=== PATIENT | female | born 1965 | race Caucasian/White ===

== ENCOUNTER 2017-02-16 08:33 | Inpatient (IN) | payer MEDICAID ==
[~2017-02-16] VITALS: Ht 165.1 cm; Wt 133.8 kg
--- NOTE | ~2017-02-16 | CON ---
[place], [place] REPORT OF CONSULTATION [id number] UN[facility] #: [id number] ROOM: 504 DOCTOR: DIANELYS OLIVIER MDHO BIRTHDATE: [birth year] DOS: 02/17/2017 PULMONARY CONSULTATION, EVALUATION AND MANAGEMENT CONSULTATION REQUESTED BY: Hospitalist services, Dr. Frederic Stephenson. REASON FOR CONSULTATION: To assess the patient for current abnormal respiratory symptoms and findings on the CT scan of the chest. HISTORY OF PRESENT ILLNESS: This is a 51-year-old white female who has been admitted to the hospital under care of Dr. Stephenson. The patient noted with acute illness of respiratory symptoms, which started a couple of days ago. She started with symptoms of palpitations of the hospital with increased shortness of breath. The shortness of breath has been noted worsening. She was also noted symptoms of wheezing as well as chest tightness and cough. Symptoms worsened progressively. The patient has been seen in the Emergency Room because of the current progressive respiratory symptom. She has not been getting any regular medications as well as the patient was noted out of the medication since her primary care physician left. She has not been seen by another physician. The patient has been currently admitted to the hospital. She has a CT of the chest done which was described with findings of lymphadenopathy as well as pulmonary nodules. She stated that since she has been hospitalized, she has been feeling reduction and improvement in respiratory symptoms, especially after taking the breathing treatments. She does complain of tightness in the chest, but there was no chest pain described. REVIEW OF SYSTEMS: CONSTITUTIONAL: Fatigue and tiredness noted without symptoms of fever or chills. EYES: Denies any burning, redness, or tenderness. EARS, NOSE, THROAT SYMPTOMS: No sore throat, hoarseness, otalgia, postnasal drainage and sinus congestion has been noted previously seemed to be better. CARDIOVASCULAR: Noted intermittent edema of the lower extremities as well. The patient was noted and palpitation, but there was no angina pain or syncopal episodes. GASTROINTESTINAL: Denies dysphagia, nausea, vomiting, diarrhea, abdominal pain, hematemesis, or melena. GENITOURINARY: No frequent urination. The patient noted without any burning, dysuria, flank pain, or hematuria. SKIN: Denies lesions or rashes. MUSCULOSKELETAL: Complaining of pain, which has been described chronic in the left shoulder seemed to be increased at this time. The patient was noted just with the movements. CENTRAL NERVOUS SYSTEM: Denies dizziness, headache, diplopia, syncopal episodes or seizures. Remaining systems were reviewed with the patient, they were noted all negative. PAST MEDICAL HISTORY: 1. Noted generalized anxiety disorder. [place], [place] REPORT OF CONSULTATION NAME: JAYDA BARNETT UNIT #: [id number] ROOM: [facility] DOCTOR: DIANELYS OLIVIER MD,HO BIRTHDATE: [birth year] 2. History of PTSD. 3. Paroxysmal atrial fibrillation. 4. Severe morbid obesity. 5. History of osteoarthritis. PAST SURGICAL HISTORY: 1. Ectopic tubal . 2. Arthroscopy of the right knee. SOCIAL HISTORY: The patient is currently . She has 2 children. Denies history of alcohol use or illicit drug use noted as life-time nonsmoker. FAMILY HISTORY: The patient's father at 70 years old, complication related to metastatic pancreatic cancer. The mother is living, 82 years old with history of Alzheimer disease also noted with history of hypertension and heart problems. HOME MEDICATIONS: 1. Supposed to be taken by the use of Toprol-XL 25 mg p.o. b.i.d. 2. Zoloft 100 mg p.o. daily. DRUG ALLERGIES: No known drug allergies. PHYSICAL EXAMINATION: GENERAL: A 51-year-old female who has been currently noted awake and alert at this time without any acute distress. VITAL SIGNS: The patient's height was recorded by the nursing staff at the time of admission, height of 5 feet 5 inches, weight of 295 pounds, BMI of 49. The patient shows a normal temperature, respiratory rate 20-35, heart rate 123-94,blood pressure 138/81-101/77. Pulse oxygen saturation recorded as saturation of 96% saturation on room air. HEENT: Chronic obesity. Head was atraumatic. Eyes nonicterus. NECK: Supple. Severe reduced posterior pharyngeal space secondary to the high tongue base crowding of soft tissue structures. CARDIOVASCULAR SYSTEM: S1, S2 audible. LUNGS: The patient was noted without any crackles. Expiratory wheezing was present in the lungs bilaterally. ABDOMEN: Soft, obese, nontender. Bowel sounds present. EXTREMITIES: Shows chronic obesity with mild ankle edema. CENTRAL NERVOUS SYSTEM: Cranial nerves 2-12 intact. No focal deficits. MUSCULOSKELETAL: The patient does not show any acute deformities. SKIN: Showed no lesions or rashes. LABORATORY DATA: Lactic acid 1.2 on admission yesterday. CBC yesterday on admission was noted essentially normal except eosinophils were elevated at 6.7%. CMP of 98 was noted with normal BUN and creatinine. Pro-BNP minimally elevated at 388. PT/PTT yesterday was noted as normal. The urine culture for the patient that was done yesterday showed no bacterial growth. CBC this morning, hemoglobin 11.8, hematocrit 36.0, platelet count was normal, 95% segmented neutrophils was noted. PT/INR and PTT this morning normal. CMP this morning, [place], [place] REPORT OF CONSULTATION NAME: JAYDA BARNETT UNIT #: [id number] ROOM: [facility] DOCTOR: DIANELYS OLIVIER MD,[facility] BIRTHDATE: [birth year] glucose 165. Potassium 3.4, normal BUN and creatinine. Troponin yesterday and this morning were all noted all normal. Chest x-ray, 1 view, the patient that was done in the Emergency Room does not show any acute abnormalities. CTA of the chest the patient that was done yesterday in the Emergency Room, the patient was personally reviewed shows 1.7 x 1.2 cm hypodense nodule in the right lobe of the thyroid. Another nodule, the patient 1.2 x 1.2 cm in the left lobe of the thyroid was also noted. There was enlargement of the lymph nodes in the mediastinum. Hilar area was noted with short dimension lymph node enlargement 1.4 cm in the size. The patient was noted with small 3 nodule, 5 mm or less. The patient noted pleural base on the right upper and the right lobe area. In addition, nodule noted pericardiac area that might be in the right middle lobe as 1 x 0.7 cm in size. A nodular density was described in the right breast as well in the deep subcutaneous tissue and possibly enlarged lymph nodes, but described with nonspecific finding. IMPRESSION: 1. The patient who has been currently admitted to the hospital any acute tracheobronchitis. The patient may have viral in origin with new onset of bronchial asthma exacerbation. 2. Current lymphadenopathy, mediastinal and pulmonary nodule. The location the patient suggestive possibly interpreting, lymph nodes with enlargement of lymph node. The patient with a differential diagnoses of sarcoidosis and chronic hypersensitivity pneumonitis is a possibility. Known mycobacterium tuberculosis infection would be also considered in the differential diagnosis. 3. Subcutaneous nodule in the breath at this time significant unknown to me. Further investigated. The patient was noted with finding of bilateral thyroid nodules. The patient may require further assessment as well. 4. Chronic morbid obesity with possible suggestion of obstructive sleep apnea disorder with current body habitus. The BMI were noted as 49. PLAN OF MANAGEMENT: The patient is getting bronchodilator, which will be continued. The Solu-Medrol will be continued on current dose. The patient reduction of the Solu-Medrol from tomorrow, had improvement in symptoms. Continue current antibiotic. Respiratory viral panel. The patient will be ordered. The workup for the current pulmonary nodule, the patient will be ordered in the lab test. Additional treatment changes will be done based on progression of illness. Obtain mammogram. The patient is an outpatient and also consider getting an ultrasound of the patient to further cracked at the nodular of the thyroid gland. Usual care, other supportive therapy, plan of management. In addition, treatment changes will be done based on the progression of the illness. Usual care, other plan of management and care. Thanks for allowing me to participate in the care of this patient. [place], [place] REPORT OF CONSULTATION NAME: JAYDA BARNETT UNIT #: [id number] ROOM: [facility] DOCTOR: HO GUTIERRES MD BIRTHDATE: [birth year] HO IVORY MD CM:CONSTR:REPORT OF CONSULTATION 1320 02/18/17 2310 interface
--- NOTE | ~2017-02-16 | PR ---
[place], [place] PROGRESS NOTE NAME: JAYDA BARNETT UNIT #: [id number] ROOM: 504 DOCTOR: PORFIRIO DAWKINS MD BIRTHDATE: [birth year] DOS: 02/18/2017 SUBJECTIVE: She is still having cough and expectorating but she is feeling somewhat better. No chest pain, no nausea, no vomiting, no fever or chills. The patient has started ambulating little better. Her urine culture and sensitivity did not grow any bacteria and her sed rate is 59, which is high. C-reactive protein is normal. PHYSICAL EXAMINATION: VITAL SIGNS: Her blood pressure is 128/80, pulse is 80, respirations 20, temperature 98.2. CHEST: Having occasional rhonchi. No crepitation. HEART: Regular. ABDOMEN: Soft. No edema of leg. The patient is progressing gradually. She is encouraged to be more active and walk around. PORFIRIO DAWKINS MD CM:PNTRANS [id number] PORFIRIO DAWKINS MD 02/19/17 0451 interface
--- NOTE | ~2017-02-16 | PR ---
[place], [place] PROGRESS NOTE NAME: JAYDA BARNETT UNIT #: [id number] ROOM: 504 DOCTOR: HO GUTIERRES MD BIRTHDATE: [birth year] DOS: 02/18/2017 PULMONARY FOLLOWUP SUBJECTIVE: She has been noted comfortable at this time without any acute distress. The patient has actions of the shoulder done yesterday, which shows osteoarthritis, left humeral joint. The patient denies symptoms of coughing or any sputum expectoration. The symptoms of shortness of breath, cough and wheezing all resolving progressively. Blood culture, no bacterial growth from 02/16/2017. OBJECTIVE: VITAL SIGNS: Normal temperature, respiratory rate 20, heart rate 80, blood pressure 116/52. The pulse oxygen saturation on room air was 98% saturation. HEENT: Chronic obesity. NECK: Supple. It was obese. CARDIOVASCULAR SYSTEM: S1, S2 audible. LUNGS: Noted without any crackles. Occasional wheezing. ABDOMEN: Soft, nontender. LABORATORY DATA: Blood culture showed no bacterial growth. ESR was noted at 59. CRP minimally elevated at 1.07. Urine culture showed no bacterial growth from admission. Blood culture from the 8th of this month showed no bacterial growths. IMPRESSION: 1. Pulmonary nodule for this patient, which was noted small at least 3 on the right side with evidence of lymphadenopathy, possibly sarcoidosis, chronic hypersensitivity, pneumonitis has been considered as one of the etiologies. 2. Resolving bronchial asthma exacerbation and acute tracheobronchitis. 3. Morbid obesity. Consider obstructive sleep apnea disorder as well. PLAN OF MANAGEMENT: No changes from the pulmonary standpoint, accept consideration for possible home discharge on oral medication whenever desired. Outpatient followup to be established post-discharge. Other supportive therapy, plan of care and management. Monitor results of the lab testing or the patient's pulmonary nodules assessment once available. [place], [place] PROGRESS NOTE NAME: JAYDA BARNETT UNIT #: [id number] ROOM: 504 DOCTOR: HO GUTIERRES MD BIRTHDATE: [birth year] HO IVORY MD CM:PNTRANS [id number] HO OLIVIER MD 02/19/17 0814 interface
--- NOTE | ~2017-02-16 | PR ---
[place], [place] PROGRESS NOTE NAME[facility]: [id number] UNIT #: [id number] ROOM: 504 DOCTOR: PORFIRIO DAWKINS MD BIRTHDATE: [birth year] DOS: SUBJECTIVE: The patient has been admitted to hospital with pneumonitis and sepsis and atrial fibrillation and swelling of the legs. She is feeling somewhat better. The patient has past history of cardiomegaly, depression, morbid obesity, osteoarthritis, paroxysmal atrial fibrillation, post stress syndrome and she is complaining of some cough and had some difficulty in sleeping due to that, but there is no chest pain and she denied any difficulty breathing, swelling of her leg is getting better and the patient will be given Robitussin-DM 1 teaspoon 4 times daily. Her CTA of the chest was showing no pulmonary embolism or aortic aneurysm or dissection. Multiple prominent mediastinal and bilateral ____ lymph nodes were noted. Hypodense node is seen in the right and left lobe of the thyroid. Ovoid soft tissue wound seen within the subcutaneous tissue in the right breast. The patient is being seen by Dr. Steen. OBJECTIVE: VITAL SIGNS: Her blood pressure 110/57, pulse is 97, respirations 20, temperature 98. CHEST: Having occasional wheezes. No crepitation. HEART: Regular. ABDOMEN: Soft, edema of leg is 2+. PORFIRIO DAWKINS MD CM:PNTRANS [id number] PORFIRIO DAWKINS MD 02/17/17 2343 interface
--- NOTE | ~2017-02-16 | PR ---
[place], [place] PROGRESS NOTE NAME: JAYDA BARNETT UNIT #: [id number] ROOM: 504 DOCTOR: DIANELYS OLIVIER MD,HO BIRTHDATE: [birth year] DOS: 02/19/2017 SUBJECTIVE: The patient was seen and examined on 02/19/2017. She has been noted comfortable at this time without any distress. The patient denies any symptoms of acute chest pain. OBJECTIVE: VITAL SIGNS: Normal temperature, respiratory rate 20, heart rate 70, and blood pressure 127/70. Pulse oxygen saturation on room air was 95% saturation. HEENT: Showed no acute change. NECK: Supple. CARDIOVASCULAR: S1, S2 audible. LUNGS: The patient was noted without any wheezing or crackles. ABDOMEN: Soft, nontender. IMPRESSION: 1. The patient with pulmonary nodules with lymphadenopathy and other acute respiratory symptom, resolving progressively. 2. Chronic obesity. 3. Suspicion of obstructive sleep apnea disorder. PLAN OF TREATMENT: The patient could be discharged home today if desired. Outpatient followup to be established in my office. Other supportive plan and management care and treatments. HO IVORY MD CM:PNTRANS [phone] HO OLIVIER MD 02/20/17 0258 interface
--- NOTE | ~2017-02-16 | ECHO ---
[place], [place] ADULT ECHOCARDIOGRAPHY REPORT NAME JAYDA BARNETT UNIT #: [id number] ROOM: 504 DOCTOR: DIANELYS OLIVIER MD,HO BIRTHDATE: [birth year] DOS: 02/16/2017 EKG was done on 02/16/2017 at the hours of 9:00 a.m. 4 minutes. There were noted normal sinus rhythm with a rate of 91 beats per minute. No other acute abnormalities were noted. HO IVORY MD CM:ECHO:ADULT ECHOCARDIOGRAPHY REPORT [phone] HO OLIVIER MD
[2017-02-16 08:34] VITALS: BP 184/90
[2017-02-16 09:13] LABS: BILIRUBIN NEGATIVE (NEGATIVE); BLOOD TRACE-LYSED (NEGATIVE); CLARITY SL CLOUDY (CLEAR); COLOR YELLOW (YELLOW); GLUCOSE NEGATIVE (NEGATIVE); KETONE NEGATIVE (NEGATIVE); LEUKO ESTERASE NEGATIVE (NEGATIVE); NITRITE NEGATIVE (NEGATIVE); SPECIFIC GRAVITY <= 1.005 (1.005-1.030); UROBILINOGEN 0.2 E.U./dl (0.2-1.0)
[2017-02-16 09:14] LABS: BASO % 0.4 % (0.0-1.0); EOS # 0.5 10*3/uL (0.0-0.4); EOS % 6.7 % (1.0-4.0); HEMOGLOBIN 12.5 g/dl (12.0-16.0); LYMPH # 0.7 10*3/uL (1.3-4.4); LYMPH % 9.2 % (27.0-41.0); MEAN CELL VOLUME 89.4 fl (81.0-99.0); MEAN CORPUSCULAR HGB 29.4 pg (27.0-31.0); MEAN CORPUSCULAR HGB CONC 32.9 g/dl (33.0-37.0); MEAN PLATELET VOLUME 9.9 fl (9.6-12.3); MONO # 0.5 10*3/uL (0.1-1.0); NEUT # 5.9 10*3/uL (2.3-7.9); NEUT % 77.4 % (47.0-73.0); PLATELET COUNT AUTOMATED 291 10*3/uL (130-400); RED BLOOD COUNT 4.25 10*6/uL (4.10-5.10); RED CELL DISTRI WIDTH 13.2 % (0-14.5); WHITE BLOOD COUNT 7.6 10*3/uL (4.8-10.8)
[2017-02-16 09:25] LABS: BACTERIA 2+; EPITHELIAL CELLS 0-2; WBC 0-2 wbc/hpf (0-5)
[2017-02-16 09:27] LABS: ALBUMIN 3.5 gm/dl (3.1-4.5); ALKALINE PHOSPHATASE 167 U/L (45-117); BUN 17 mg/dl (7-24); CHLORIDE 106 mmol/L (98-107); CKMB 0.7 ng/ml (0.5-3.6); CPK 45 U/L (26-192); CREATININE 0.73 mg/dL (0.55-1.02); LIPASE 144 U/L (73-393); MAGNESIUM 2.2 mg/dL (1.5-2.1); POTASSIUM 3.8 mmol/L (3.5-5.1); SGOT/AST 27 IU/L (3-35); SGPT/ALT 48 U/L (12-78); SODIUM 138 mmol/L (136-145); TOTAL PROTEIN 7.6 gm/dL (6.4-8.2); TROPONIN I < 0.015 ng/ml (<0.045)
[2017-02-16 09:32] LABS: ACT PARTIAL THROMBO TIME 24.3 SECONDS (20.8-31.5)
[2017-02-16 11:30] VITALS: BP 101/77
--- NOTE | 2017-02-16 11:30 | NUR ---
A 51, admitted to 5E, under the services of AMMY Aguilar MD with a diagnosis of SEPSIS/PNEUMONITIS. Chief complaint is MULTIPLE COMPLAINTS. Patient arrived via ambulatory from ER. Monitor applied. Initial assessment completed. Vital signs taken and recorded. AMMY GAUILAR MD notified of admission to the unit. Orders received. See assessment for past medical history, medications and allergies. Patient and/or family oriented to unit. visitation policy reviewed. Clothing/patient valuable form completed. CHAN SHEIKH
[2017-02-16 12:00] VITALS: BP 101/77
[2017-02-16] MEDS ORDERED: TOPROL XL25 MG PO (12:10)
[2017-02-16] MEDS ORDERED: ZOLOFT100 MG PO (12:10)
[2017-02-16 12:30] VITALS: BP 142/76
--- NOTE | 2017-02-16 14:26 | NUR ---
CALL PLACED TO FOR CONSULT OFFICE STATES THAT THEY SENT HIM THE MESSAGE
--- NOTE | 2017-02-16 14:26 | NUR ---
CALL PLACED TO , OFFICE STAFF STATES THAT WAS IN A MEETING AND STATES THAT THEY WILL GIVE HIM THE MESSAGE SO THAT HE CAN CALL BACK AFTER HIS MEETIING
--- NOTE | 2017-02-16 14:29 | NUR ---
PT OFF THE FLOOR FOR TESTING AT THIS TIME
--- NOTE | 2017-02-16 15:00 | NUR ---
SPOKE WITH , UPDATED ON PT STATUS AND NOTIFIED OF CONSULT
[2017-02-16 16:00] VITALS: BP 136/81
[2017-02-16 20:00] VITALS: BP 136/49
--- NOTE | 2017-02-16 21:00 | NUR ---
RESTING IN BED WITH NO ACUTE DISTRESS NOTED. RESPIRATIONS EASY. LUNGS DIMINISHED WITH EXP WHEEZES. PULSE OX 95% RA. HARSH NON-PRODUCTIVE COUGH NOTED. CALL LIGHT WITHIN REACH. NO VOICED COMPLAINTS
[2017-02-17] VITALS: BP 110/57
--- NOTE | 2017-02-17 | NUR ---
REMAINS IN BED WATCHING TV. RESPIRATIONS EASY. VSS. CALL LIGHT WITHIN REACH. NO VOICED COMPLAINTS
--- NOTE | 2017-02-17 03:30 | NUR ---
PATIENT HAD RUNS OF BIGEMINY AND TRIGEMINY.
--- NOTE | 2017-02-17 06:00 | NUR ---
RESTED THROUGHOUT NIGHT. RESPIRATIONS EASY. CALL LIGHT WITHIN REACH
--- NOTE | 2017-02-17 07:00 | NUR ---
DR DAWKINS HERE TO SEE PATIENT AND DISCUSS PLAN OF CARE
[2017-02-17 07:13] LABS: HEMOGLOBIN 11.8 g/dl (12.0-16.0); MEAN CELL VOLUME 90.2 fl (81.0-99.0); MEAN CORPUSCULAR HGB 29.6 pg (27.0-31.0); MEAN CORPUSCULAR HGB CONC 32.8 g/dl (33.0-37.0); MEAN PLATELET VOLUME 10.3 fl (9.6-12.3); PLATELET COUNT AUTOMATED 301 10*3/uL (130-400); RED BLOOD COUNT 3.99 10*6/uL (4.10-5.10); RED CELL DISTRI WIDTH 13.2 % (0-14.5); WHITE BLOOD COUNT 9.2 10*3/uL (4.8-10.8)
--- NOTE | 2017-02-17 07:30 | NUR ---
AASSUMED CARE OF PT AT THIS TIME, RESPS EASY AND NONLABORED WITH NO S/S OF DISTRESS, CALL LIGHT WITH IN REACH
[2017-02-17 07:31] LABS: ALBUMIN 3.2 gm/dl (3.1-4.5); CHLORIDE 106 mmol/L (98-107); POTASSIUM 3.4 mmol/L (3.5-5.1); SODIUM 138 mmol/L (136-145); TOTAL PROTEIN 7.5 gm/dL (6.4-8.2)
[2017-02-17 07:37] LABS: TOTAL CELLS COUNTED 100 #CELLS
[2017-02-17 07:38] LABS: ALKALINE PHOSPHATASE 158 U/L (45-117); BUN 15 mg/dl (7-24); CHOLESTEROL 174 mg/dL (<200); CREATININE 0.66 mg/dL (0.55-1.02); HDL CHOLESTEROL 74 mg/dl (40-60); LDL CHOLESTEROL 92 mg/dL (9-159); MAGNESIUM 2.1 mg/dL (1.5-2.1); PHOSPHOROUS 1.9 mg/dL (2.5-4.9); PLATELET SUFFICIENCY NORMAL (NORMAL); SGOT/AST 28 IU/L (3-35); SGPT/ALT 47 U/L (12-78); THYROID STIM HORMONE (HS) 0.461 uIU/ml (0.358-4.75); TRIGLYCERIDES 41 mg/dl (<150); VLDL CHOLESTEROL 8 mg/dL (6-40)
[2017-02-17 07:56] LABS: ACT PARTIAL THROMBO TIME 23.1 SECONDS (20.8-31.5)
[2017-02-17 08:00] VITALS: BP 128/67
[2017-02-17 08:32] LABS: VITAMIN D, 25-HYDROXY 14.1 ng/mL (30-100)
[2017-02-17 12:00] VITALS: BP 128/71
--- NOTE | 2017-02-17 13:59 | NUR ---
CALL PLACED TO PRIMARY MD AT THIS TIME NO ANSWER WILL ATTEMPT TO CALL AGAIN
[2017-02-17 16:00] VITALS: BP 124/70
--- NOTE | 2017-02-17 16:53 | NUR ---
PATIENT RESTING AT PRESENT.
[2017-02-17 20:00] VITALS: BP 118/63
--- NOTE | 2017-02-17 21:00 | NUR ---
RESTING IN BED WITH WATCHING TV WITH NO DISTRESS NOTED. RESPIRATIONS EASY. LUNGS DIMINISHED WITH FAINT EXP WHEEZES. PULSE OX 96% RA. CLAIMS NON-PROD COUGH. GENERALIZED EDEMA VS OBESITY NOTED. CALL LIGHT WITHIN REACH. NO VOICED COMPLAINTS
--- NOTE | 2017-02-17 21:30 | NUR ---
WAS GIVEN TYLENOL AND TUMS PRN FOR ARTHRITIS PAIN AND HEART BURN. WILL CONTINUE TO MONITOR.
--- NOTE | 2017-02-17 22:00 | NUR ---
PT ASSESSED FOR EFFECTIVENESS OF ARTHRITIS PAIN AND HEART BURN. PAIN AND HEART BURN HAS DECREASED STATED BY PT. INTERVENTIONS EFFECTIVE. WILL CONTINUE TO MONITOR.
[2017-02-18] VITALS: BP 128/81
--- NOTE | 2017-02-18 01:30 | NUR ---
PT SLEEPING. WILL CONTINUE TO MONITOR.
--- NOTE | 2017-02-18 03:00 | NUR ---
PATIENT SLEEPING WITH NO DISTRESS NOTED. BANK ANALYST REVEALS FREQUENT PVC'S AND RUNS OF TRIGEMINY. PATIENT AWAKENED, DENIES CHEST PAIN.
--- NOTE | 2017-02-18 06:00 | NUR ---
SLEPT THROUGHOU NIGHT WITH NO DISTRESS NOTED. RESPIRATIONS EASY. CALL LIGHT WITHIN REACH. NO VOICED COMPLAINTS THIS SHIFT
--- NOTE | 2017-02-18 06:45 | NUR ---
PATIENT ORDERED RESP PANEL, NOT YET COLLECTED BY LAB. LAB CONTACTED AND TO LOOK INTO THIS
[2017-02-18 07:06] LABS: RHEUMATOID ARTHRITIS FACTOR 37.2 IU/mL (0.0-13.9)
[2017-02-18 08:00] VITALS: BP 118/57
[2017-02-18 09:05] LABS: IMMUNOGLOBULIN IgE 002170 127 IU/mL (0-100)
[2017-02-18 12:00] VITALS: BP 116/62
[2017-02-18 16:00] VITALS: BP 124/66
[2017-02-18 17:05] LABS: HEPATITIS C AB <0.1 (0.0-0.9)
--- NOTE | 2017-02-18 19:30 | NUR ---
ASSUMED CARE OF PT AT THIS TIME, RESPS EASY AND NONLABORED, CALL LIGHT WITH IN REACH
[2017-02-18 20:00] VITALS: BP 112/58
[2017-02-19] VITALS: BP 121/76
--- NOTE | 2017-02-19 03:58 | NUR ---
PATIENT RESTING IN BED WITH EYES CLOSED. NO SIGNS OR SYMPTOMS OF DISTRESS NOTED. AROUSES TO VERBAL STIMULI. WILL CONTINUE TO MONITOR. CALL LIGHT IN REACH.
--- NOTE | 2017-02-19 05:35 | NUR ---
PATIENT MEDICATED WITH TUMS FOR COMPLAINTS OF HEARTBURN.
[2017-02-19 08:00] VITALS: BP 127/70
--- NOTE | 2017-02-19 08:30 | NUR ---
Transonic Engineer in to talk to patient. Patient states lives at HOME [place] with HER . There are 5 steps in the home. Physician: DR MILIAN Pharmacy: [facility] Home health services: NONE Patient's level of ADLs: INDEPENDENT Patient has working utilities: YES DME: NONE Follow-up physician's appointment after d/c: PREFERS TO MAKE HER OWN APPT Does patient want to access PORTAL?: Discharge plan HOME. GARY MAYEN
[2017-02-19 12:00] VITALS: BP 121/93
[2017-02-19] MEDS ORDERED: ASPIRIN ADULT L81 M2 PO (13:09)
[2017-02-19] MEDS ORDERED: LEVAQUIN500 M2 PO (13:09)
[2017-02-19] MEDS ORDERED: PREDNISONE10 MG PO (13:09)
[2017-02-19] MEDS ORDERED: LISINOPRIL5 MG PO (13:09)
[2017-02-19] MEDS ORDERED: METOPROLOL SUCC25 M2 PO (13:09)
[2017-02-19 15:06] LABS: ATYPICAL PANCA <1:20 titer (Neg:<1:20); CYTOPLASMIC (C-ANCA) <1:20 titer (Neg:<1:20); PERINUCLEAR (P-ANCA) <1:20 titer (Neg:<1:20)
--- NOTE | 2017-02-19 15:43 | NUR ---
Discharge instructions reviewed with patient/family. Patient receptive and verbalizes understanding. Follow-up care arranged. Written instructions given to patient/family. ALVA BOBBY
[2017-02-19 16:08] LABS: ALDOLASE 002030 4.7 U/L (3.3-10.3); ANGIOTENSIN-CONVERTING ENZYME 39 U/L (14-82)
[2017-02-19 18:05] LABS: IGG SUBCLASS 1 737 mg/dL (248-810); IGG SUBCLASS 2 142 mg/dL (130-555); IGG SUBCLASS 3 72 mg/dL (15-102); IGG SUBCLASS 4 27 mg/dL (2-96)
[2017-02-22 00:04] LABS: ADENOVIRUS Negative (Negative); INFLUENZA A Negative (Negative); INFLUENZA B Negative (Negative); METAPNEUMOVIRUS Negative (Negative); PARAINFLUENZA 1 Negative (Negative); PARAINFLUENZA 2 Negative (Negative); PARAINFLUENZA 3 Negative (Negative); RHINOVIRUS Positive (Negative); RSV A Negative (Negative); RSV B Negative (Negative)
== END 2017-02-19 15:43 | disposition home or self-care (01) | DRG 871 ==
LOC: ED 08:33 → EDHOLD 10:09 → 5E 10:09
PROVIDERS: Emergency Medicine; Internal Medicine; Internal Medicine Critical Care Medicine; ADMIT Internal Medicine
DX: A41.9 Sepsis, unspecified organism (principal); J18.9 Pneumonia, unspecified organism; J45.901 Unspecified asthma with (acute) exacerbation; E83.41 Hypermagnesemia; Z68.42 Body mass index [BMI] 45.0-49.9, adult; I48.0 Paroxysmal atrial fibrillation; F32.9 Major depressive disorder, single episode, unspecified; E66.01 Morbid (severe) obesity due to excess calories; F41.9 Anxiety disorder, unspecified; J20.9 Acute bronchitis, unspecified; R59.1 Generalized enlarged lymph nodes; I51.7 Cardiomegaly; R03.0 Elevated blood-pressure reading, without diagnosis of hypertension; F43.10 Post-traumatic stress disorder, unspecified; M15.9 Polyosteoarthritis, unspecified; E04.2 Nontoxic multinodular goiter; Z79.899 Other long term (current) drug therapy; Z72.89 Other problems related to lifestyle; Z81.8 Family history of other mental and behavioral disorders; Z80.8 Family history of malignant neoplasm of other organs or systems; Z82.49 Family history of ischemic heart disease and other diseases of the circulatory system

== ENCOUNTER → 2017-03-05 | Outpatient (CLI) | payer MEDICAID ==
[~2017-03-05] MED LIST: ASPIRIN ADULT L81 M2 PO; LEVAQUIN500 M2 PO; LISINOPRIL5 MG PO; METOPROLOL SUCC25 M2 PO; PREDNISONE10 MG PO; TOPROL XL25 MG PO; ZOLOFT100 MG PO
== END | disposition home or self-care (01) ==
LOC: US 15:00
DX: E04.1 Nontoxic single thyroid nodule (principal); N64.9 Disorder of breast, unspecified

== ENCOUNTER → 2017-03-15 | Outpatient (CLI) | payer MEDICAID | END | disposition home or self-care (01) | LOC: MAMMO 00:47 | DX: Z12.31 Encounter for screening mammogram for malignant neoplasm of breast (principal); E04.1 Nontoxic single thyroid nodule; N64.9 Disorder of breast, unspecified ==

== ENCOUNTER → 2017-04-02 | Outpatient (CLI) | payer OTHER ==
[2017-04-02 11:15] LABS: ACT PARTIAL THROMBO TIME 22.6 SECONDS (20.8-31.5); INTERNATIONAL NORM RATIO 0.9 (2.0-3.5)
== END | disposition home or self-care (01) ==
LOC: RAD 04:01 → LAB 04:01 → SDC 11:00 → EDSTATUS 11:00 → RAD 11:00
PROVIDERS: Internal Medicine
DX: E04.1 Nontoxic single thyroid nodule (principal); R79.1 Abnormal coagulation profile

== ENCOUNTER → 2017-04-19 | Outpatient (CLI) | payer MEDICARE, MEDICAID | END | disposition home or self-care (01) | LOC: LAB 07:05 | DX: R76.8 Other specified abnormal immunological findings in serum (principal); R74.8 Abnormal levels of other serum enzymes; Z79.899 Other long term (current) drug therapy ==

== ENCOUNTER 2017-07-19 07:49 | Inpatient (IN) | payer MEDICARE ==
[2017-07-19] VITALS (7 sets, daily range): BP systolic 129–150; BP diastolic 66–94
[~2017-07-19] VITALS: Ht 165 cm; Wt 135.6 kg
--- NOTE | ~2017-07-19 | O ---
[place], [place] OPERATIVE NOTE NAME: JAYAD BARNETT UNIT #: [id number] ROOM: 404 DOCTOR: JAIRO NICHOLS MD BIRTHDATE: [birth year] DOS: 07/20/2017 PROCEDURE: Transesophageal echocardiogram and cardioversion. INDICATION: Atrial fibrillation. DESCRIPTION OF PROCEDURE: Informed consent was obtained from the patient, she was brought to the operating suite in the fasting state. Anesthesia was provided by Anesthesia staff. When a satisfactory level of anesthesia was obtained, a transesophageal transducer was inserted from her mouth to the diaphragm without difficulty. Images were obtained in the standard fashion. Echocardiographic contrast was obtained with 10 mL bolus of agitated saline. When all imaging was completed, the patient did undergo a direct current synchronized cardioversion. FINDINGS: The aortic root, visualized transverse aorta and descending thoracic aorta to the diaphragm were normal in caliber and free of any significant atherosclerosis. The aortic valve had three leaflets with normal function. The left atrium appeared normal in size. Four pulmonary veins were noted to enter it normally. The left atrial appendage was normal in size. No thrombus was seen. The mitral valve structure and coaptation were normal. Left ventricular internal dimensions and regional wall motion were normal with a normal ejection fraction. The right atrium and right ventricle appeared normal in size. The tricuspid valve was structurally normal. There was physiologic mitral and tricuspid insufficiency. There was no evidence for elevation in right ventricular systolic pressure. The pulmonic valve appeared normal. Echo contrast (agitated saline) was injected via a peripheral vein. The right atrium and right ventricle well opacified. There was no shunting at the atrial level noted. CARDIOVERSION: The patient received a total of 2 biphasic shocks utilizing anterior, posterior pads. Shocks were administered in a synchronized fashion. The first one was at 100 watt seconds and did not result in a cardioversion. The second one was at 200 watt seconds and did result in conversion to sinus rhythm. The patient tolerated the procedure well and had stable vital signs at the end of the procedure. IMPRESSION: 1. No cardiac source of emboli seen. 2. Successful biphasic electrical cardioversion. [place], [place] OPERATIVE NOTE NAME: JAYDA BARNETT UNIT #: [id number] ROOM: 404 DOCTOR: JAIRO NICHOLS MD BIRTHDATE: [birth year] JAIRO NICHOLS MD CM:OPRMATTORD:OPERATIVE NOTE [id number] JAIRO NICHOLS MD 07/20/17 2236 interface
--- NOTE | ~2017-07-19 | PR ---
[place], [place] PROGRESS NOTE NAME: [id number] UNIT #: [id number] ROOM: 404 DOCTOR: PORFIRIO DAWKINS MD BIRTHDATE: [birth year] DOS: 07/21/2017 The patient has been admitted to hospital with atrial fibrillation with ventricular rapid rate with pulmonary nodules which are benign in nature, morbid obesity, post-traumatic stress disorder, tachycardia, tachypnea, osteoarthritis, elevated C-reactive protein, elevated BNP, shortness of breath, depression, anxiety and thyroid nodules. The patient is feeling much better. She does not have any shortness of breath now and there does not seem to be any distress. She will continue taking her medication at home, which is Zoloft 100 mg daily, aspirin 81 mg daily, gabapentin 100 mg 3 times daily, metoprolol 100 mg twice daily, Xarelto 20 mg daily, benzonatate 100 mg 3 times daily, doxycycline 100 mg twice daily, prednisone 10 mg daily. She is advised to lose weight, control diet and she will be followed up by Dr. Stephenson in the office next week. PORFIRIO DAWKINS MD CM:PNTRANS [id number] PORFIRIO DAWKINS MD 07/21/17 2019 interface
--- NOTE | ~2017-07-19 | PR ---
[place], [place] PROGRESS NOTE NAME: JAYDA BARNETT UNIT #: [id number] ROOM: 404 DOCTOR: JAIRO NICHOLS MD BIRTHDATE: [birth year] DOS: 07/20/2017 CARDIOLOGY PROGRESS NOTE SUBJECTIVE: The patient was seen in the Cardiology Department today, 07/20/2017, prior to a stress test. She remains dyspneic and continues to have an irregular heartbeat despite diltiazem and propafenone being administered overnight. Troponin levels have been unremarkable. TSH was normal. PHYSICAL EXAMINATION: VITAL SIGNS: Today her pulse is 100 and irregularly irregular, blood pressure is 122/70. She is afebrile. She weighs 135.6 kilograms with a body mass index of 49.8. HEENT: Normocephalic and atraumatic. NECK: Supple. She has no jugular distention. Carotids are full. LUNGS: Respirations are unlabored. Her chest is clear to auscultation and percussion. HEART: Has an irregularly irregular rhythm without murmurs or gallops. ABDOMEN: Obese, but otherwise benign. EXTREMITIES: Showed trace edema. IMPRESSION: 1. Recurrent paroxysmal atrial fibrillation with rapid ventricular response. 2. Morbid obesity. 3. Possible hypertension. 4. History of posttraumatic stress disorder with anxiety and depression. PLAN: We will proceed with a pharmacologic stress test today. Later today we will do a CHIKI, followed by cardioversion assuming there is no intracardiac thrombus present. We will continue to manage her with propafenone to help prevent future episodes of atrial fibrillation. She will be maintained on oral anticoagulation after the cardioversion. I thank Dr. Stephenson for asking our advice regarding management of this patient. [place], [place] PROGRESS NOTE NAME: JAYDA BARNETT UNIT #: [id number] ROOM: 404 DOCTOR: JAIRO NICHOLS MD BIRTHDATE: [birth year] JAIRO NICHOLS MD CM:PNTRANS [id number] JAIRO NICHOLS MD 07/20/17 1020 interface
--- NOTE | ~2017-07-19 | PR ---
[place], [place] PROGRESS NOTE NAME: JAYDA BARNETT UNIT #: [id number] ROOM: 404 DOCTOR: PORFIRIO DAWKINS MD BIRTHDATE: [birth year] DOS: SUBJECTIVE: The patient has been admitted to hospital with atrial fibrillation with rapid ventricular rate with pulmonary nodules which are benign, morbid obesity, posttraumatic stress syndrome, tachycardia, tachypnea, osteoarthritis and also having acute bronchitis. She is feeling a little better today. She is breathing better. She received her aerosol treatment, which has improved her breathing. She is still having cough. No headache. No chest pain. No nausea or vomiting. Her CT of the abdomen was done yesterday, which shows nonobstructive left nephrolithiasis without hydronephrosis or ureteral stone ____ mildly enlarged lymph node and bilateral ____ lymph nodes along the bilateral ____ change. The patient is having ureteric stone on the left side and her urine examination shows + blood, 4+ bacteria. OBJECTIVE: VITAL SIGNS: Her blood pressure is 142/76, pulse 65, respirations 18, temperature 98.2. The patient is denying any abdominal pain. HEART: Somewhat irregular. LUNGS: Some few wheezing and crepitations. ABDOMEN: Soft. ASSESSMENT AND PLAN: The patient is already taking Rocephin to cover her urinary tract infection. The patient has counseled to lose some weight. PORFIRIO DAWKINS MD CM:PNTRANS [id number] PORFIRIO DAWKINS MD 07/23/17 0240 interface
--- NOTE | ~2017-07-19 | CON ---
[place], [place] REPORT OF CONSULTATION NAME: JAYDA BARNETT UNIT #: [id number] ROOM: 404 DOCTOR: JAIRO NICHOLS MD BIRTHDATE: [birth year] DOS: 07/19/2017 CARDIOLOGY CONSULTATION REASON FOR CONSULTATION: Atrial fibrillation with rapid ventricular response. HISTORY OF PRESENT ILLNESS: The patient is a 51-year-old woman who had an episode of atrial fibrillation while living in [place] in around 2013. She states that she was given medications and her heart converted spontaneously to sinus rhythm. She remained on metoprolol until she moved to the local area and then ran out of her medications. She presented to the hospital in early February 2017 with palpitations and dyspnea. She also noticed increased leg swelling. She was in sinus rhythm at the time of her evaluation and therefore it was difficult to know what her arrhythmias truly were. Since her risk of stroke seemed small, we treated her with aspirin and a beta laurent. Since then she has had frequent palpitations, but has not been documented to have atrial fibrillation until the current admission. She states that in last evening, she was feeling much more short of breath and fatigued and felt like her heart was out of rhythm. She came to the Emergency Room where she was seen to be in atrial fibrillation with rapid ventricular response. She was placed on a heparin drip and admitted. She was placed on oral diltiazem since IV diltiazem is not currently available and we were asked to see her. At the present time, the patient is fairly comfortable. Her heart rate is about 90 to 110. She shows no signs of heart failure. PAST MEDICAL HISTORY: Includes: 1. Morbid obesity. 2. Paroxysmal atrial fibrillation. 3. Posttraumatic stress disorder with anxiety and depression. 4. Hypertension, noted on this admission. 5. History of reactive airways disease. 6. Status post arthroscopy of her right knee and tubal ectopic . MEDICATIONS: Prior to admission included aspirin 81 mg daily, gabapentin 100 mg t.i.d., metoprolol 50 mg b.i.d. and sertraline 100 mg daily. ALLERGIES: She has no known drug allergies. REVIEW OF SYSTEMS: The patient denies diplopia, loss of vision, but she does note that she has episodes where she suddenly cannot remember words or pronounce words properly. These are brief, but she has noticed them on several occasions. She denies focal weakness. She denies nausea or vomiting. She denies fevers, chills, sweats or recent weight change. She denies hemoptysis or hematemesis. She denies diaphoresis, but she does have episodes of fatigue and palpitations. She denies any change in bowel or bladder habits and denies bleeding in her bowels or urine. She denies peripheral edema. She denies heat or cold intolerance. She denies any peripheral edema or clots in her legs. The remainder of the review of systems is negative except as noted above. [place], [place] REPORT OF CONSULTATION NAME: JAYDA BARNETT UNIT #: [id number] ROOM: 404 DOCTOR: JAIRO NICHOLS MD BIRTHDATE: [birth year] SOCIAL HISTORY: The patient does not currently smoke and does not use drugs. She drinks alcohol on occasions. PHYSICAL EXAMINATION: GENERAL: The patient is a morbidly obese white female who is awake, alert and oriented. VITAL SIGNS: Pulse is 90 and irregularly irregular, blood pressure is 129/66. She is afebrile. She weighs 135.6 kilograms with a body mass index of 49.8. HEENT: Normocephalic and atraumatic. Extraocular muscles are intact. Sclerae are clear. Pupils are equal, round and react to light. The oral mucosa is moist. Tongue is midline. NECK: Supple. She has no jugular distention. Carotids are full. I heard no bruits. She had no neck or supraclavicular masses and no thyromegaly. LUNGS: Respirations are unlabored. Her chest is clear to auscultation and percussion. She had no presacral edema or chest wall tenderness. CARDIOVASCULAR: Her heart had an irregularly irregular rhythm without murmurs or gallops. The PMI was not displaced. ABDOMEN: Soft and normoactive without mess, organomegaly or bruits. EXTREMITIES: Showed no edema. Peripheral pulses were palpable in the feet bilaterally. LABORATORY DATA: I reviewed her electrocardiogram, which showed atrial fibrillation with a rapid ventricular response. She had a nonspecific intraventricular conduction delay and nonspecific T-wave abnormalities. Her chest x-ray showed normal heart size without any infiltrates; however, her CT scan did show multiple pulmonary nodules as well as an enlarged mediastinal and right axillary lymph node. Etiology of these is not yet known. White count 6500, hemoglobin is 12.4, hematocrit 38.4, platelet count 306,000. Sodium 139, potassium 3.8, BUN 19, creatinine 0.74. Troponin has been negative x 3. TSH is pending. IMPRESSIONS: 1. Recurrent atrial fibrillation. 2. Morbid obesity. 3. Possible hypertension. 4. History of posttraumatic stress disorder with anxiety and depression. PLAN: The patient's CHADS-VASc score appears to be increasing. She probably does have hypertension, so her score is at least 2. In addition, she seems to be having more episodes of atrial fibrillation. At this point, I think that she should be anticoagulated with either warfarin or one of the direct oral anticoagulants. She probably will require this long-term. I also think that she should be placed on an antiarrhythmic drug to try to prevent some of the episodes of atrial fibrillation. For tonsarwat, we will treat her with oral diltiazem since IV diltiazem is not available and try to slow her rate that way. We will also start her on propafenone to see if she will convert to sinus rhythm. If she converts overnight, we will start her on a direct oral anticoagulant and allow her to go home on propafenone. If she does not convert, [place], [place] REPORT OF CONSULTATION NAME: JAYDA BARNETT UNIT #: [id number] ROOM: [facility] DOCTOR: JAIRO NICHOLS MD BIRTHDATE: [birth year] then we will plan on doing a CHIKI-guided cardioversion within the next 24 hours. Further recommendations depend upon how she responds to therapy. If antiarrhythmic therapies are not helpful, then consideration for electrolyte physiologic evaluation would be given. We will have to explore with the patient whether or not she has sleep apnea syndrome, which also could contribute to her atrial arrhythmias. I thank Dr. Stephenson for asking our advice regarding management of this patient. JAIRO NICHOLS MD CM:CONSTR:REPORT OF CONSULTATION 1724 07/19/17 2007 interface
[2017-07-19] MEDS ORDERED: GABAPENTIN100 M2 PO (08:07)
[2017-07-19 08:12] LABS: BASO % 0.6 % (0.0-1.0); EOS # 0.3 10*3/uL (0.0-0.4); EOS % 5.2 % (1.0-4.0); HEMATOCRIT 39.1 % (37.0-47.0); HEMOGLOBIN 12.7 g/dl (12.0-16.0); LYMPH % 15.9 % (27.0-41.0); MEAN CELL VOLUME 89.3 fl (81.0-99.0); MEAN CORPUSCULAR HGB CONC 32.5 g/dl (33.0-37.0); MEAN PLATELET VOLUME 9.5 fl (9.6-12.3); MONO # 0.4 10*3/uL (0.1-1.0); MONO % 6.7 % (3.0-9.0); NEUT # 4.4 10*3/uL (2.3-7.9); NEUT % 71.3 % (47.0-73.0); PLATELET COUNT AUTOMATED 342 10*3/uL (130-400); RED BLOOD COUNT 4.38 10*6/uL (4.10-5.10); RED CELL DISTRI WIDTH 12.8 % (0-14.5); WHITE BLOOD COUNT 6.2 10*3/uL (4.8-10.8)
[2017-07-19 08:23] LABS: ACT PARTIAL THROMBO TIME 23.7 SECONDS (20.8-31.5)
[2017-07-19 08:29] LABS: ALBUMIN 3.3 gm/dl (3.1-4.5); ALKALINE PHOSPHATASE 160 U/L (45-117); BUN 19 mg/dl (7-24); CHLORIDE 103 mmol/L (98-107); CREATININE 0.74 mg/dL (0.55-1.02); POTASSIUM 3.8 mmol/L (3.5-5.1); SGOT/AST 25 IU/L (3-35); SGPT/ALT 39 U/L (12-78); SODIUM 139 mmol/L (136-145); TOTAL PROTEIN 7.4 gm/dL (6.4-8.2)
[2017-07-19 08:32] LABS: TROPONIN I < 0.015 ng/ml (<0.045)
[2017-07-19] MEDS ORDERED: METOPROLOL SUC100 M1 PO (11:36)
[2017-07-19 13:42] LABS: BASO % 0.3 % (0.0-1.0); EOS # 0.3 10*3/uL (0.0-0.4); EOS % 3.9 % (1.0-4.0); HEMATOCRIT 38.4 % (37.0-47.0); HEMOGLOBIN 12.4 g/dl (12.0-16.0); LYMPH # 0.5 10*3/uL (1.3-4.4); LYMPH % 7.9 % (27.0-41.0); MEAN CELL VOLUME 89.1 fl (81.0-99.0); MEAN CORPUSCULAR HGB 28.8 pg (27.0-31.0); MEAN CORPUSCULAR HGB CONC 32.3 g/dl (33.0-37.0); MEAN PLATELET VOLUME 9.1 fl (9.6-12.3); MONO # 0.3 10*3/uL (0.1-1.0); MONO % 4.2 % (3.0-9.0); NEUT # 5.4 10*3/uL (2.3-7.9); NEUT % 83.4 % (47.0-73.0); PLATELET COUNT AUTOMATED 306 10*3/uL (130-400); RED BLOOD COUNT 4.31 10*6/uL (4.10-5.10); RED CELL DISTRI WIDTH 12.8 % (0-14.5); WHITE BLOOD COUNT 6.5 10*3/uL (4.8-10.8)
[2017-07-20] VITALS (10 sets, daily range): BP systolic 89–149; BP diastolic 49–86
[2017-07-20 07:24] LABS: HEMATOCRIT 37.5 % (37.0-47.0); HEMOGLOBIN 12.1 g/dl (12.0-16.0); MEAN CELL VOLUME 87.2 fl (81.0-99.0); MEAN CORPUSCULAR HGB 28.1 pg (27.0-31.0); MEAN CORPUSCULAR HGB CONC 32.3 g/dl (33.0-37.0); MEAN PLATELET VOLUME 9.9 fl (9.6-12.3); PLATELET COUNT AUTOMATED 318 10*3/uL (130-400); RED CELL DISTRI WIDTH 12.9 % (0-14.5); WHITE BLOOD COUNT 5.6 10*3/uL (4.8-10.8)
[2017-07-20 07:49] LABS: ACT PARTIAL THROMBO TIME 27.7 SECONDS (20.8-31.5); INTERNATIONAL NORM RATIO 1.1 (2.0-3.5)
[2017-07-20 07:51] LABS: ALBUMIN 3.3 gm/dl (3.1-4.5); ALKALINE PHOSPHATASE 179 U/L (45-117); BUN 14 mg/dl (7-24); CHLORIDE 101 mmol/L (98-107); CHOLESTEROL 171 mg/dL (<200); CREATININE 0.68 mg/dL (0.55-1.02); FREE T4 1.29 ng/dl (0.76-1.46); HDL CHOLESTEROL 84 mg/dl (40-60); LDL CHOLESTEROL 77 mg/dL (9-159); PHOSPHOROUS 2.5 mg/dL (2.5-4.9); POTASSIUM 3.4 mmol/L (3.5-5.1); SGOT/AST 36 IU/L (3-35); SGPT/ALT 58 U/L (12-78); SODIUM 135 mmol/L (136-145); TOTAL PROTEIN 7.6 gm/dL (6.4-8.2); TRIGLYCERIDES 51 mg/dl (<150); VLDL CHOLESTEROL 10 mg/dL (6-40)
[2017-07-20 07:56] LABS: THYROID STIM HORMONE (HS) 0.408 uIU/ml (0.358-4.75)
[2017-07-20 08:27] LABS: TOTAL CELLS COUNTED 100 #CELLS
[2017-07-20 08:28] LABS: PLATELET SUFFICIENCY NORMAL (NORMAL)
[2017-07-20 10:05] LABS: VITAMIN D, 25-HYDROXY 8.5 ng/mL (30-100)
[2017-07-21] VITALS: BP 128/53
[2017-07-21 08:00] VITALS: BP 126/66
[2017-07-21] MEDS ORDERED: BENZONATATE100 M1 PO (09:24)
[2017-07-21] MEDS ORDERED: DOXYCYCLINE100 M3 PO (09:24)
[2017-07-21] MEDS ORDERED: PREDNISONE10 MG PO (09:24)
[2017-07-21] MEDS ORDERED: XARE20MG PO (09:24)
[2017-07-21] MEDS ORDERED: PROAIR HFA8.5 GM INH (09:24)
[2017-07-21] MEDS ORDERED: PROPAFENONE HC225 M1 PO (09:25)
[2017-07-21 12:00] VITALS: BP 136/68
[2017-07-21 16:00] VITALS: BP 102/79
[2017-07-21 20:00] VITALS: BP 138/73
[2017-07-22] VITALS: BP 116/88
[2017-07-22 04:19] LABS: BILIRUBIN NEGATIVE (NEGATIVE); BLOOD 3+ (NEGATIVE); CLARITY SL CLOUDY (CLEAR); COLOR YELLOW (YELLOW); GLUCOSE NEGATIVE (NEGATIVE); KETONE NEGATIVE (NEGATIVE); LEUKO ESTERASE NEGATIVE (NEGATIVE); NITRITE NEGATIVE (NEGATIVE); PH 5.5 (5.0-9.0); UROBILINOGEN 0.2 E.U./dl (0.2-1.0)
[2017-07-22 04:27] LABS: RBC 16-20 rbc/hpf (0-2)
[2017-07-22 04:28] LABS: BACTERIA 4+; CALCIUM OXALATE CRYSTALS 1+; EPITHELIAL CELLS 16-20
[2017-07-22 08:00] VITALS: BP 142/76
[2017-07-22 12:00] VITALS: BP 122/62
[2017-07-22 16:00] VITALS: BP 121/59
[2017-07-22 18:26] LABS: BUN 24 mg/dl (7-24); CHLORIDE 106 mmol/L (98-107); CREATININE 0.76 mg/dL (0.55-1.02); POTASSIUM 4.1 mmol/L (3.5-5.1); SODIUM 142 mmol/L (136-145)
[2017-07-22 20:00] VITALS: BP 119/52
[2017-07-23] VITALS: BP 134/73
[2017-07-23 08:00] VITALS: BP 130/76
[2017-07-23 12:00] VITALS: BP 140/73
[2017-07-23] MEDS ORDERED: PROPAFENONE HC225 M1 PO (13:41)
[2017-07-23] MEDS ORDERED: LOPRESSOR25 MG PO (13:41)
== END 2017-07-23 17:01 | disposition home or self-care (01) | DRG 309 ==
LOC: ED 07:49 → 4E 10:49 → EDHOLD 10:49 → 4E 11:01
PROVIDERS: Emergency Medicine; Hospitalist; Internal Medicine; Internal Medicine Cardiovascular Disease
PROC: 3E073KZ Introduction of Other Diagnostic Substance into Coronary Artery, Percutaneous Approach (ICD-10-PCS; principal; 2017-07-20)
PROC: 4A02XM4 Measurement of Cardiac Total Activity, External Approach (ICD-10-PCS; principal; 2017-07-20)
PROC: 5A2204Z Restoration of Cardiac Rhythm, Single (ICD-10-PCS; principal; 2017-07-20)
DX: I48.0 Paroxysmal atrial fibrillation (principal); N39.0 Urinary tract infection, site not specified; E66.01 Morbid (severe) obesity due to excess calories; Z68.42 Body mass index [BMI] 45.0-49.9, adult; R91.8 Other nonspecific abnormal finding of lung field; F43.10 Post-traumatic stress disorder, unspecified; M19.90 Unspecified osteoarthritis, unspecified site; F32.9 Major depressive disorder, single episode, unspecified; F41.9 Anxiety disorder, unspecified; E04.2 Nontoxic multinodular goiter; I10 Essential (primary) hypertension; Z82.49 Family history of ischemic heart disease and other diseases of the circulatory system; Z81.8 Family history of other mental and behavioral disorders; Z80.0 Family history of malignant neoplasm of digestive organs; Z79.82 Long term (current) use of aspirin; Z79.899 Other long term (current) drug therapy